=== PATIENT | male | born 1970 | race Caucasian/White ===

== ENCOUNTER 2024-05-11 12:09 | Emergency (ER) | payer BC, OTHER ==
--- OUTSIDE RECORDS SUMMARY | 2024-05-11 12:12 | XMS REPORT | Continuity of Care Document ---
Author Name Unknown Address [address] [facility] [address] [place] [address] [facility] Address [address] [facility]. [address] [place] [address] Care Team Providers Care Medical Receptionist Name Role Phone GISELLA Attending Clinician Unavailable Tyron Hawk Attending Clinician [phone] [place] Attending Clinician Unavailable GISELLA Admitting Clinician Unavailable [place] Admitting Clinician Unavailable Payers Payer Name Policy Type Policy Number Effective Date Expirati on Date Source [facility] [id number] Problems Condition Name Condition Details Condition Category Status Onset Date Resolution Date Last Treatment Date Treating Clinician Comments Source Open fracture of patella Open Fracture of Patella Problem Active 08-30 00:00: 00 [facility] Laceration - injury Laceration - Injury Problem Active 08-30 00:00: 00 [facility] Abrasion, elbow area Abrasion, Elbow Area Problem Active 08-30 00:00: 00 [facility] Medications Ordered Medication Name Filled Medication Name Start Date Stop Date Current Medication? Ordering Clinician Indication Dosage Frequency Signature (SIG) Comments Components Source Mobic 15 mg tablet T PO Q DAY W/FOOD Mobic 15 mg tablet T PO Q DAY W/FOOD 08-27 00:00: 00 No Mobic 15 mg tablet T PO Q DAY W/FOOD [facility] Zanaflex 4 mg tablet T PO TID PRN MUSCLE PAIN Zanaflex 4 mg tablet T PO TID PRN MUSCLE PAIN 08-27 00:00: 00 No Zanaflex 4 mg tablet T PO TID PRN MUSCLE PAIN [facility] Mobic 15 mg tablet T PO Q DAY W/FOOD Mobic 15 mg tablet T PO Q DAY W/FOOD 08-27 00:00: 00 No Mobic 15 mg tablet T PO Q DAY W/FOOD [facility] Zanaflex 4 mg tablet T PO TID PRN MUSCLE PAIN Zanaflex 4 mg tablet T PO TID PRN MUSCLE PAIN 08-27 00:00: 00 No Zanaflex 4 mg tablet T PO TID PRN MUSCLE PAIN [facility] acetaminoph en 300 mg-codeine 30 mg tablet TAKE 1 - 2 TABLET(S) BY MOUTH EVERY 6 HOURS NEEDED PAIN acetaminoph en 300 mg-codeine 30 mg tablet TAKE 1 - 2 TABLET(S) BY MOUTH EVERY 6 HOURS NEEDED PAIN No acetaminop hen 300 mg-codeine 30 mg tablet TAKE 1 - 2 TABLET(S) BY MOUTH EVERY 6 HOURS NEEDED PAIN [facility] amoxicillin 875 mg-potassiu m clavulanate 125 mg tablet TAKE 1 TABLET BY MOUTH EVERY 12 HOURS FOR 7 DAYS amoxicillin 875 mg-potassiu m clavulanate 125 mg tablet TAKE 1 TABLET BY MOUTH EVERY 12 HOURS FOR 7 DAYS No amoxicilli n 875 mg-potassi um clavulanat e 125 mg tablet TAKE 1 TABLET BY MOUTH EVERY 12 HOURS FOR 7 DAYS [facility] atorvastati n 20 mg tablet TAKE 1 TABLET BY MOUTH EVERY DAY atorvastati n 20 mg tablet TAKE 1 TABLET BY MOUTH EVERY DAY No atorvastat in 20 mg tablet TAKE 1 TABLET BY MOUTH EVERY DAY [facility] hydrocodone 5 mg-acetamin ophen 325 mg tablet TAKE 1 - 2 TABLET(S) BY MOUTH EVERY 4- 6 HOURS NEEDED FOR PAIN MAX OF 8-10 PILLS IN 24 HOURS hydrocodone 5 mg-acetamin ophen 325 mg tablet TAKE 1 - 2 TABLET(S) BY MOUTH EVERY 4- 6 HOURS NEEDED FOR PAIN MAX OF 8-10 PILLS IN 24 HOURS No hydrocodon e 5 mg-acetami nophen 325 mg tablet TAKE 1 - 2 TABLET(S) BY MOUTH EVERY 4- 6 HOURS NEEDED FOR PAIN MAX OF 8-10 PILLS IN 24 HOURS [facility] meloxicam 7.5 mg tablet TAKE 1 TABLET BY MOUTH TWICE A DAY NEEDED meloxicam 7.5 mg tablet TAKE 1 TABLET BY MOUTH TWICE A DAY NEEDED No meloxicam 7.5 mg tablet TAKE 1 TABLET BY MOUTH TWICE A DAY NEEDED [facility] [place] 10 mg-325 mg tablet Take 1 - 2 tablet(s) P O EVERY 4 - 6 HOURS PRN PAIN MAX OF 8-10 PILLS IN 24 HOURS [place] 10 mg-325 mg tablet Take 1 - 2 tablet(s) P O EVERY 4 - 6 HOURS PRN PAIN MAX OF 8-10 PILLS IN 24 HOURS No [place] 10 mg-325 mg tablet Take 1 - 2 tablet(s) P O EVERY 4 - 6 HOURS PRN PAIN MAX OF 8-10 PILLS IN 24 HOURS [facility] oxybutynin chloride ER 10 mg tablet,exte nded release 24 hr TAKE 1 TABLET BY MOUTH EVERY DAY oxybutynin chloride ER 10 mg tablet,exte nded release 24 hr TAKE 1 TABLET BY MOUTH EVERY DAY No oxybutynin chloride ER 10 mg tablet,ext ended release 24 hr TAKE 1 TABLET BY MOUTH EVERY DAY [facility] acetaminoph en 300 mg-codeine 30 mg tablet TAKE 1 - 2 TABLET(S) BY MOUTH EVERY 6 HOURS NEEDED PAIN acetaminoph en 300 mg-codeine 30 mg tablet TAKE 1 - 2 TABLET(S) BY MOUTH EVERY 6 HOURS NEEDED PAIN No acetaminop hen 300 mg-codeine 30 mg tablet TAKE 1 - 2 TABLET(S) BY MOUTH EVERY 6 HOURS NEEDED PAIN [facility] atorvastati n 20 mg tablet TAKE 1 TABLET BY MOUTH EVERY DAY atorvastati n 20 mg tablet TAKE 1 TABLET BY MOUTH EVERY DAY No atorvastat in 20 mg tablet TAKE 1 TABLET BY MOUTH EVERY DAY [facility] hydrocodone 10 mg-acetamin ophen 325 mg tablet TAKE 1-2 TABLETS BY MOUTH EVERY 4-6 HOURS NEEDED FOR PAIN, MAX 8-10 PILLS IN 24 HOURS hydrocodone 10 mg-acetamin ophen 325 mg tablet TAKE 1-2 TABLETS BY MOUTH EVERY 4-6 HOURS NEEDED FOR PAIN, MAX 8-10 PILLS IN 24 HOURS No hydrocodon e 10 mg-acetami nophen 325 mg tablet TAKE 1-2 TABLETS BY MOUTH EVERY 4-6 HOURS NEEDED FOR PAIN, MAX 8-10 PILLS IN 24 HOURS [facility] hydrocodone 5 mg-acetamin ophen 325 mg tablet TAKE 1 - 2 TABLET(S) BY MOUTH EVERY 4- 6 HOURS NEEDED FOR PAIN MAX OF 8-10 PILLS IN 24 HOURS hydrocodone 5 mg-acetamin ophen 325 mg tablet TAKE 1 - 2 TABLET(S) BY MOUTH EVERY 4- 6 HOURS NEEDED FOR PAIN MAX OF 8-10 PILLS IN 24 HOURS No hydrocodon e 5 mg-acetami nophen 325 mg tablet TAKE 1 - 2 TABLET(S) BY MOUTH EVERY 4- 6 HOURS NEEDED FOR PAIN MAX OF 8-10 PILLS IN 24 HOURS [facility] meloxicam 7.5 mg tablet TAKE 1 TABLET BY MOUTH TWICE A DAY NEEDED meloxicam 7.5 mg tablet TAKE 1 TABLET BY MOUTH TWICE A DAY NEEDED No meloxicam 7.5 mg tablet TAKE 1 TABLET BY MOUTH TWICE A DAY NEEDED [facility] oxybutynin chloride ER 10 mg tablet,exte nded release 24 hr TAKE 1 TABLET BY MOUTH EVERY DAY oxybutynin chloride ER 10 mg tablet,exte nded release 24 hr TAKE 1 TABLET BY MOUTH EVERY DAY No oxybutynin chloride ER 10 mg tablet,ext ended release 24 hr TAKE 1 TABLET BY MOUTH EVERY DAY [facility] Procedures Procedure Date / Time Performed Performing Clinicia n Source XR, cervical spine, 2 or 3 view 2021-12-31 00:00:00 [facility] Encounters Start Date/Time End Date/Time Encounter Type Admission Type Attending Clinicians Care Facility Care Department Encounter ID Source 2022-07-10 00:00:00 2022-07-10 00:00:00 Outpatient OLS_JONES_L EE AO AO [id number] [facility] 2022-07-10 00:00:00 2022-07-10 00:00:00 Outpatient OLS_JONES_L EE AOSM AO [id number] [facility] 2022-07-10 00:00:00 2022-07-10 00:00:00 Outpatient OLS_JONES_L EE AOSM AO [id number] [facility] 2022-01-08 00:00:00 2022-01-08 00:00:00 Outpatient OLS_JONES_L EE AOSM AOSM [id number] [facility] 2021-12-31 00:00:00 2021-12-31 00:00:00 Outpatient OLS_JONES_L EE AOSM AOSM [id number] [facility] 2021-12-31 00:00:00 2021-12-31 00:00:00 Tyron Hawk MD: [address] [address] , Ph. A[facility] [place] [facility] [place] [facility] [place] [id number] [facility] 2021-09-02 05:37:00 2021-09-02 05:37:00 Outpatient OLS_ANDREW_L EE AOSM AOSM [id number] [facility] 2021-09-02 00:00:00 2021-09-02 00:00:00 Outpatient Tyron Hawk AOSM AOSM [id number] 2021-09-02 00:00:00 2021-09-02 00:00:00 Tyron Hawk MD: [facility] [place] [address] , Ph. [facility] [place] [facility] [place] [facility] [place] [id number] [facility] 2021-08-21 02:49:00 2021-08-21 02:49:00 Outpatient OLS_JONES_L EE AOSM AOSM [id number] [facility] 2021-08-07 03:13:00 2021-08-07 03:13:00 Outpatient OLS_JONES_L EE AOSM AOSM [id number] [facility] 2021-08-07 03:13:00 2021-08-07 03:13:00 Outpatient OLS_JONES_L EE AOSM AO [id number] [facility] 2020-01-10 02:23:00 2020-01-10 02:23:00 [facility] [place] [facility] [id number] [facility] 2019-11-29 11:42:00 2019-11-29 11:42:00 [facility] [place] [facility] [id number] [facility]
[2024-05-11] MEDS ORDERED: ASPIRIN EC 325 MG TABLET PO ONE (12:33)
[2024-05-11 12:44] LABS: Absolute Basophils 0.1 K/uL (0-0.5); Absolute Eosinophils 0.2 K/uL (0-0.5); Absolute Lymphocytes (CBC) 3.2 K/uL (0.7-4.9); Absolute Monocytes 0.7 K/uL (0.1-1.3); Absolute Neutrophil 5.1 K/uL (1.8-8.0); Basophils % 0.8 % (0-1.3); Eosinophils % 2.3 % (0-4.4); Hematocrit 41.5 % (39.6-49.0); Hemoglobin 13.9 g/dL (13.6-17.9); Lymphocytes % 34.6 % (15.3-44.8); MCH 29.4 pg (27.0-35.0); MCHC 33.6 g/dL (32.0-36.0); MCV 87.5 fL (80-100); MPV 8.6 fL (7.6-11.3); Monocytes % 7.7 % (3.3-12.3); Neutrophils % 54.6 % (41.7-73.7); Platelets 223 thou/uL (152-406); RBC Red Blood Cell Count 4.75 M/uL (4.33-5.43); Red Cell Distribution Width 12.9 % (12.1-15.2)
[2024-05-11 13:01] LABS: Anion Gap 6.8 mEq/L (5.0-15.0); Magnesium 1.9 mg/dL (1.6-2.4); Potassium 3.8 mEq/L (3.5-5.1); Troponin High Sensitivity 3.1 pg/mL (<58.9)
--- NOTE | 2024-05-11 13:14 | RAD REPORT ---
EXAMINATION: US LEFT LOWER EXTREMITY VENOUS DOPPLER CLINICAL INDICATION: [facility] left leg SWELLING Bed Name: 15 Y TECHNIQUE: Complete bilateral duplex sonography of the LEFT lower extremity veins was performed. The examination included compression for vein patency, color Doppler imaging and flow augmentation in response to distal compression of the distal external iliac, common femoral, femoral, popliteal, tibi al, and great and small saphenous veins. COMPARISON: No prior exam. FINDINGS: Duplex sonography testing of the veins of the LEFT lower extremity was performed. Color flow imaging shows all veins to be compressible with [id number] color filling. Pulsatile and phasic flow is present within all lower extremity deep and superficial veins examined. IMPRESSION: No evidence of deep venous thrombosis.
--- NOTE | 2024-05-11 13:19 | RAD REPORT ---
EXAMINATION: ONE VIEW CHEST XR CLINICAL INDICATION: Male, 53 years old.,CHEST PAIN TECHNIQUE: Frontal chest projection is submitted. Examination is limited by patient positioning and t echnique. COMPARISON: No prior exam. FINDINGS: The lungs are well inflated and clear. No pneumothorax or sizable effusion. The heart is normal in s ize. Mediastinal contours are unremarkable. IMPRESSION: No acute intrathoracic abnormalities.
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
[2024-05-11 14:52] VITALS: O2SAT 100
[2024-05-11 14:54] VITALS: BP 121/73
--- NOTE | 2024-05-15 12:13 | EKG ---
Test Date: 2024-05-11 Test Time: 12:30:50 [employer] Consultant: FLORA MEASUREMENT RESULTS: Intervals: Rate: 58 LA: 168 QRSD: 72 QT: 412 QTc: 404 [place]: P: 63 LA: 168 QRS: 43 T: -5 INTERPRETIVE STATEMENTS: Sinus bradycardia Otherwise normal ECG Compared to ECG 01/14/2013 17:48:55 Sinus rhythm no longer present Electronically Signed On 05-15-24 12:04:52 CDT by Danyel Morillo
== END 2024-05-11 14:47 | disposition home or self-care (01) ==
LOC: ER 12:09
DX: R07.9 Chest pain, unspecified (principal); R22.42 Localized swelling, mass and lump, left lower limb; I10 Essential (primary) hypertension
CPT/HCPCS: 36415; 71045; 80048; 83735; 84484; 85025; 93005; 93971; 99284